=== PATIENT | female | born 1950 | race Caucasian/White ===

== ENCOUNTER 2016-07-07 09:07 | Emergency (ER) | payer MEDICARE, MEDICAID ==
[2016-07-07] MEDS ORDERED: SODIUM CHLORIDE 0.9% 500 ML IV ONE (09:52)
[2016-07-07] MEDS ORDERED: ACETAMINOPHEN 160 MG/5 ML UD 10.15ML CUP PO ONE (09:56)
[2016-07-07] MEDS ORDERED: DEXTROSE IVPB ONE (10:08)
[2016-07-07] MEDS ORDERED: CEFAZOLIN IVPB ONE (10:08)
[2016-07-07 10:27] LABS: HEMATOCRIT 39.1 % (35.0-47.0); HEMOGLOBIN 13.3 gm/dl (11.6-16.0); MEAN CELL VOLUME 93.5 fl (81-97); MEAN CORPUSCULAR HEMOGLOBIN 31.8 pg (27-33); MEAN PLATELET VOLUME 10.5 fl (7.4-10.4); PLATELET COUNT 235 K/uL (130-400); RED BLOOD COUNT 4.18 M/uL (3.80-5.40); RED CELL DISTRIBUTION WIDTH 13.2 % (11.5-14.5); WHITE BLOOD COUNT W/O DIFF 11.1 K/uL (4.2-12.2)
[2016-07-07 10:33] LABS: URINE APPEARANCE CLEAR; URINE BILIRUBIN NEGATIVE (NEGATIVE); URINE BLOOD SMALL (NEGATIVE); URINE COLOR YELLOW; URINE GLUCOSE (UA) NEGATIVE (NEGATIVE); URINE KETONE NEGATIVE (NEGATIVE); URINE LEUKOCYTE ESTERASE TRACE (NEGATIVE); URINE NITRITE POSITIVE (NEGATIVE); URINE PROTEIN NEGATIVE (NEGATIVE)
[2016-07-07 10:47] LABS: ALB/GLOB RATIO 1.2 (1.1-1.8); ALKALINE PHOSPHATASE 76 U/L (38-126); ALT/SGPT 25 U/L (9-52); AST/SGOT 28 U/L (14-36); BILIRUBIN,TOTAL 0.58 mg/dL (0.2-1.3); BLOOD UREA NITROGEN 12 mg/dL (7-17); CREATININE 0.5 mg/dL (0.52-1.04); EST GLOMERULAR FILTRATION RATE > 60 ml/min; GLUCOSE,RANDOM 109 mg/dL (70-110); TOTAL PROTEIN 7.3 gm/dL (6.3-8.2)
[2016-07-07 10:49] LABS: INFLUENZA A NEGATIVE (NEGATIVE); INFLUENZA B NEGATIVE (NEGATIVE)
[2016-07-07 11:00] LABS: URINE BACTERIA 3+; URINE EPITHELIAL CELLS 0 - 2 (FEW)
--- NOTE | 2016-07-07 13:14 | Emergency Department Record ---
History of Present Illness - General Chief complaint: Vomiting Stated complaint: vomiting Time Seen by Provider: 07/07/16 09:46 Source: Family, Marketing And Outreach Coordinator Mode of Arrival: Wheelchair Limitations: Altered mental status, Physical limitation - History of Present Illness Initial comments: pt brought in for fever and decreased appetite complaint: Other Onset/Timin -: Days(s) Improves with: None Worsens with: None Context: Sick contacts Associated Symptoms: Cough, Fever/chills, Nausea/vomiting - Related Data Home Medications Medication Instructions Recorded Confirmed Last Taken Aspirin Chewable 81 mg PO DAILY 08/07/13 07/07/16 07/07/16 Dextrin [Fiber] 350 gm PO DAILY 08/07/13 07/07/16 07/07/16 Ferrous Sulfate 325 mg PO DAILY 08/07/13 07/07/16 07/07/16 Hydralazine HCl 10 mg PO ASDIR 08/07/13 07/07/16 Unknown Lamotrigine 200 mg PO BID 08/07/13 07/07/16 07/07/16 Levetiracetam [Keppra] 500 mg PO DAILY 08/07/13 07/07/16 07/07/16 Pantoprazole Sodium 40 mg PO DAILY 08/07/13 07/07/16 07/07/16 Polyethylene Glycol 3350 [Miralax] 1 pkt PO DAILY 08/07/13 07/07/16 07/07/16 Alprazolam 0.5 mg PO ASDIR 07/07/16 07/07/16 Unknown Duloxetine HCl [Cymbalta] 60 mg PO DAILY 07/07/16 07/07/16 07/07/16 Olanzapine [Zyprexa] 5 mg PO QHS 07/07/16 07/07/16 07/07/16 Olanzapine [Zyprexa] 10 mg PO QHS 07/07/16 07/07/16 07/06/16 Sennosides/Docusate Sodium [Senna 1 tab PO TID 07/07/16 07/07/16 07/07/16 S Tablet] Previous Rx's Medication Instructions Recorded Cephalexin [Keflex] 500 mg PO BID #14 cap 07/07/16 Allergies Allergy/AdvReac Type Severity Reaction Status Date / Time Sulfa (Sulfonamide Allergy Intermediate HIVES Verified 07/07/16 09:28 Antibiotics) Travel Screening - Travel/Exposure Within Last 30 Days Have you traveled within the last 30 days?: No Review of Systems ROS unobtainable: Due to mental status Past Medical History - SOCIAL HISTORY Smoking Status: Never smoker Alcohol Use: None Drug Use: None - RESPIRATORY Hx Respiratory Disorders: No - CARDIOVASCULAR Hx Cardio Disorders: Yes Hx Hypertension: Yes - NEURO Hx Neuro Disorders: Yes Hx Seizures: Yes Comment:: mental disability - GI Hx GI Disorders: Yes Comment:: constipation - Hx Genitourinary Disorders: No - ENDOCRINE Hx Endocrine Disorders: No - MUSCULOSKELETAL Hx Musculoskeletal Disorders: No - PSYCH Hx Psych Problems: Yes Hx Anxiety: Yes Hx Behavior Problems: Yes - HEMATOLOGY/ONCOLOGY Hx Hematology/Oncology Disorders: No Family Medical History Any Significant Family History?: No Physical Exam - General General Appearance: Alert, Cooperative, Mild distress Limitations: Altered mental status, Physical limitation - Head Head exam: Normal inspection - Eye Eye exam: Normal appearance, PERRL, EOMI Pupils: Normal accommodation - ENT ENT exam: Normal exam, Mucous membranes moist, Normal external ear exam, Normal orophraynx, TM's normal bilaterally Ear exam: Normal external inspection. negative: External canal tenderness Nasal Exam: Normal inspection. negative: Discharge, Sinus tenderness Mouth exam: Normal external inspection, Tongue normal Teeth exam: Normal inspection. negative: Dental caries Throat exam: Normal inspection. negative: Tonsillar erythema, Tonsillar exudate - Neck Neck exam: Normal inspection, Full ROM. negative: Tenderness - Respiratory Respiratory exam: Normal lung sounds bilaterally. negative: Respiratory distress - Cardiovascular Cardiovascular Exam: Normal rhythm, Normal heart sounds, Tachycardia - GI/Abdominal GI/Abdominal exam: Soft, Normal bowel sounds. negative: Tenderness - Rectal Rectal exam: Deferred - exam: Deferred - Extremities Extremities exam: Normal inspection, Full ROM, Normal capillary refill. negative: Tenderness - Back Back exam: Reports: Normal inspection, Full ROM. Denies: Muscle spasm, Rash noted, Tenderness - Neurological Neurological exam: Alert, CN II-XII intact, Motor sensory deficit, Other ( wheelchair bound) - Psychiatric Psychiatric exam: Normal affect, Normal mood - Skin Skin exam: Dry, Intact, Normal color, Warm Course Vital Signs 07/07/16 09:19 Temperature 99.5 F Pulse Rate 132 H Respiratory 22 Rate Blood Pressure 129/61 Pulse Ox 92 L Medical Decision Making - Lab Data Result diagrams: 07/07/16 10:20 04/04/17 10:20 Lab Results 07/07/16 07/07/16 07/07/16 Range/Units 10:20 10:20 10:20 WBC 11.1 (4.2-12.2) K/uL RBC 4.18 (3.80-5.40) M/uL Hgb 13.3 (11.6-16.0) gm/dl Hct 39.1 (35.0-47.0) % MCV 93.5 (81-97) fl MCH 31.8 (27-33) pg MCHC 34.0 (32-36) g/dl RDW 13.2 (11.5-14.5) % Plt Count 235 (130-400) K/uL MPV 10.5 H (7.4-10.4) fl Neutrophils % 75.0 (47-80) % Band Neutrophils % 5.0 (0-5) % Lymphocytes % 6.0 L (16-45) % Monocytes % 14.0 H (0-9) % Eosinophils % Not Reportable Basophils % Not Reportable Sodium 139 (136-145) mmol/L Potassium 3.7 (3.5-5.1) mmol/L Chloride 103 (98-107) mmol/L Carbon Dioxide 26.0 (22-30) mmol/L Anion Gap 10.0 (7-16) BUN 12 (7-17) mg/dL Creatinine 0.5 L (0.52-1.04) mg/dL Estimated GFR > 60 ml/min Random Glucose 109 (70-110) mg/dL Calcium 8.8 (8.5-10.1) mg/dL Total Bilirubin 0.58 (0.2-1.3) mg/dL AST 28 (14-36) U/L ALT 25 (9-52) U/L Alkaline Phosphatase 76 (38-126) U/L Total Protein 7.3 (6.3-8.2) gm/dL Albumin 4.0 (3.5-5.0) gm/dL Globulin 3.3 (1.4-4.8) gm/dL Albumin/Globulin Ratio 1.2 (1.1-1.8) Urine Color Yellow Urine Appearance Clear Urine pH 7.5 (5.0-8.0) Ur Specific [place] 1.015 (1.002-1.030) Urine Protein Negative (NEGATIVE) Urine Glucose (UA) Negative (NEGATIVE) Urine Ketones Negative (NEGATIVE) Urine Blood Small H (NEGATIVE) Urine Nitrite Positive H (NEGATIVE) Urine Bilirubin Negative (NEGATIVE) Urine Urobilinogen 1.0 (0.20 - 1.00) E.U./dL Ur Leukocyte Esterase Trace H (NEGATIVE) Urine RBC 3 - 6 (NONE SEEN) Urine WBC 6 - 10 (0-2/hpf) Ur Epithelial Cells 0 - 2 (FEW) Urine Bacteria 3+ Influenza Type A Ag (NEGATIVE) Influenza Type B Ag (NEGATIVE) 07/07/16 Range/Units 10:20 WBC (4.2-12.2) K/uL RBC (3.80-5.40) M/uL Hgb (11.6-16.0) gm/dl Hct (35.0-47.0) % MCV (81-97) fl MCH (27-33) pg MCHC (32-36) g/dl RDW (11.5-14.5) % Plt Count (130-400) K/uL MPV (7.4-10.4) fl Neutrophils % (47-80) % Band Neutrophils % (0-5) % Lymphocytes % (16-45) % Monocytes % (0-9) % Eosinophils % Basophils % Sodium (136-145) mmol/L Potassium (3.5-5.1) mmol/L Chloride (98-107) mmol/L Carbon Dioxide (22-30) mmol/L Anion Gap (7-16) BUN (7-17) mg/dL Creatinine (0.52-1.04) mg/dL Estimated GFR ml/min Random Glucose (70-110) mg/dL Calcium (8.5-10.1) mg/dL Total Bilirubin (0.2-1.3) mg/dL AST (14-36) U/L ALT (9-52) U/L Alkaline Phosphatase (38-126) U/L Total Protein (6.3-8.2) gm/dL Albumin (3.5-5.0) gm/dL Globulin (1.4-4.8) gm/dL Albumin/Globulin Ratio (1.1-1.8) Urine Color Urine Appearance Urine pH (5.0-8.0) Ur Specific [place] (1.002-1.030) Urine Protein (NEGATIVE) Urine Glucose (UA) (NEGATIVE) Urine Ketones (NEGATIVE) Urine Blood (NEGATIVE) Urine Nitrite (NEGATIVE) Urine Bilirubin (NEGATIVE) Urine Urobilinogen (0.20 - 1.00) E.U./dL Ur Leukocyte Esterase (NEGATIVE) Urine RBC (NONE SEEN) Urine WBC (0-2/hpf) Ur Epithelial Cells (FEW) Urine Bacteria Influenza Type A Ag Negative (NEGATIVE) Influenza Type B Ag Negative (NEGATIVE) Disposition Disposition: Discharge Clinical Impression: UTI (urinary tract infection) Qualifiers: Urinary tract infection type: acute cystitis Hematuria presence: without hematuria Qualified Code(s): N30.00 - Acute cystitis without hematuria Disposition: Home, Self-Care Condition: (1) Good Instructions: Urinary Tract Infection in Women (ED) Additional Instructions: follow up with family doctor. return sooner if worse. push fluids Prescriptions: Cephalexin [Keflex] 500 mg PO BID #14 cap Forms: Patient Portal Access
== END 2016-07-07 13:29 | disposition home or self-care (01) ==
LOC: ER 09:07
DX: N30.00 Acute cystitis without hematuria (principal); R11.2 Nausea with vomiting, unspecified; R41.82 Altered mental status, unspecified; R05 Cough
CPT/HCPCS: 71010; 80053; 81001; 85027; 87400; 99284

== ENCOUNTER 2016-07-28 18:20 | Emergency (ER) | payer MEDICARE, MEDICAID ==
--- NOTE | 2016-07-28 18:47 | Emergency Department Record ---
History of Present Illness - General Chief complaint: Female Urogenital Problem Stated complaint: VAGINAL BLEEDING Time Seen by Provider: 07/28/16 18:38 Source: Patient (With home health care respiratory therapist) Mode of Arrival: Wheelchair Limitations: Altered mental status (non verbal chronic) - History of Present Illness Initial comments: 66 yo female presents with possible blood from the vagina. Staff at the home note blood in her depends garment today around 4pm. No other symptoms such as vomiting or diarrhea. She is chronically incontinent. No blood noted with stools. No fever. She is wheelchair bound and non verbal. MD Complaint: Vaginal bleeding Onset/Timin -: Hour(s) (2) Location: [place] Severity: Mild Consistency: Intermittent Improves with: None Worsens with: None Associated Symptoms: Vaginal discharge - Related Data Home Medications Medication Instructions Recorded Confirmed Last Taken Aspirin Chewable 81 mg PO DAILY 08/07/13 07/07/16 07/07/16 Dextrin [Fiber] 350 gm PO DAILY 08/07/13 07/07/16 07/07/16 Ferrous Sulfate 325 mg PO DAILY 08/07/13 07/07/16 07/07/16 Hydralazine HCl 10 mg PO ASDIR 08/07/13 07/07/16 Unknown Lamotrigine 200 mg PO BID 08/07/13 07/07/16 07/07/16 Levetiracetam [Keppra] 500 mg PO DAILY 08/07/13 07/07/16 07/07/16 Pantoprazole Sodium 40 mg PO DAILY 08/07/13 07/07/16 07/07/16 Polyethylene Glycol 3350 [Miralax] 1 pkt PO DAILY 08/07/13 07/07/16 07/07/16 Alprazolam 0.5 mg PO ASDIR 07/07/16 07/07/16 Unknown Duloxetine HCl [Cymbalta] 60 mg PO DAILY 07/07/16 07/07/16 07/07/16 Olanzapine [Zyprexa] 5 mg PO QHS 07/07/16 07/07/16 07/07/16 Olanzapine [Zyprexa] 10 mg PO QHS 07/07/16 07/07/16 07/06/16 Sennosides/Docusate Sodium [Senna 1 tab PO TID 07/07/16 07/07/16 07/07/16 S Tablet] Previous Rx's Medication Instructions Recorded Cephalexin [Keflex] 500 mg PO BID #14 cap 07/07/16 Clotrimazole [Antifungal] 1 apply TP .2 TO 3 TIMES DAILY #15 07/28/16 gm Allergies Allergy/AdvReac Type Severity Reaction Status Date / Time Sulfa (Sulfonamide Allergy Intermediate HIVES Verified 07/07/16 09:28 Antibiotics) Travel Screening - Travel/Exposure Within Last 30 Days Have you traveled within the last 30 days?: No Review of Systems ROS unobtainable: Due to mental status (chronic non verbal, at baseline) Past Medical History - SOCIAL HISTORY Smoking Status: Never smoker - RESPIRATORY Hx Respiratory Disorders: No - CARDIOVASCULAR Hx Cardio Disorders: Yes Hx Hypertension: Yes - NEURO Hx Neuro Disorders: Yes Hx Seizures: Yes Comment:: mental disability - GI Hx GI Disorders: Yes Comment:: constipation - Hx Genitourinary Disorders: No - ENDOCRINE Hx Endocrine Disorders: No - MUSCULOSKELETAL Hx Musculoskeletal Disorders: No - PSYCH Hx Psych Problems: Yes Hx Anxiety: Yes Hx Behavior Problems: Yes - HEMATOLOGY/ONCOLOGY Hx Hematology/Oncology Disorders: No Family Medical History Any Significant Family History?: No Physical Exam - General General Appearance: Alert, No acute distress Limitations: Altered mental status - Head Head exam: Atraumatic, Normal inspection - Eye Eye exam: Normal appearance - ENT ENT exam: Normal exam - Neck Neck exam: Normal inspection - Cardiovascular Cardiovascular Exam: Regular rate, Normal rhythm - GI/Abdominal GI/Abdominal exam: Soft - Rectal Rectal exam: Heme (-) stool, Normal inspection, Normal rectal tone. negative: Bloody stool, Hemorrhoids, Mass - exam: Abnormal external exam (mild labial erythema, 5mm bleeding scab on the patient's posterior left external labial area that appears to be the source of bleeding, ), Other (no blood in the vaginal opening, digital finger examination of the vagina was negative for blood, very minimal blood noted in the diaper on initial exam.) - Extremities Extremities exam: Normal inspection - Neurological Neurological exam: Alert - Psychiatric Psychiatric exam: Agitated - Skin Skin exam: Abrasion (left posterior vaginal area) Course Vital Signs 07/28/16 18:40 Temperature 97.0 F L Pulse Rate [ 108 H Pulse Ox Probe] Respiratory 22 Rate Blood Pressure 148/95 [Left Arm] Pulse Ox 95 - Reevaluation(s) Reevaluation #1: On examination she has a small scab that bleed on the left posterior external labial area, no vaginal or rectal blood She has a superficial mild external yeast infection. The plan will be treat with topical barrier cream to treat the yeast infection, as well as protect the small area of skin breakdown. 07/28/16 18:50 Disposition Disposition: Discharge Clinical Impression: Tinea cruris Vaginal abrasion Qualifiers: Encounter type: initial encounter Qualified Code(s): S30.814A - Abrasion of vagina and vulva, initial encounter Disposition: Home, Self-Care Condition: (1) Good Instructions: Tinea Corporis (ED) Additional Instructions: Clean the area with a mild soap once daily Apply the Clotrimazole twice daily or as needed after changing a soiled diaper Return if bleeding persists Prescriptions: Clotrimazole [Antifungal] 1 apply TP .2 TO 3 TIMES DAILY #15 gm Forms: Patient Portal Access Time of Disposition: 18:56
[2016-07-28] MEDS ORDERED: ZINC OXIDE 28.35 GM TUBE TOP ONE (18:53)
== END 2016-07-28 19:17 | disposition home or self-care (01) ==
LOC: ER 18:20
DX: S30.814A Abrasion of vagina and vulva, initial encounter (principal); B37.3 Candidiasis of vulva and vagina; X58.XXXA Exposure to other specified factors, initial encounter
CPT/HCPCS: 99283

== ENCOUNTER 2019-02-21 20:59 | Emergency (ER) | payer MEDICARE, MEDICAID ==
--- NOTE | 2019-02-21 21:24 | Emergency Department Record ---
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 Neuroscientist reports that the patient has a PEG tube placed by Dr. Guerrero, was accidentally pulled out by the patient just prior to arrival. Neuroscientist denies other complications following removal, denies bleeding or signs of infection to the abdominal wall. Onset/Timin -: Hour(s) Location: Abdomen Radiation: Non-Radiating Consistency: Constant Improves with: None Worsens with: None Associated Symptoms: Denies other symptoms Treatments Prior to Arrival: None - Colin Coma Scale Eye Response: (3) Open to voice Motor Response: (5) Localizes to pain Verbal Response: (3) Inappropriate words [place] Total: 11 - Related Data Previous Rx's Medication Instructions Recorded Cephalexin [Keflex] 500 mg PO BID #14 cap 07/07/16 Clotrimazole [Antifungal] 1 apply TP .2 TO 3 TIMES DAILY #15 07/28/16 gm Allergies Allergy/AdvReac Type Severity Reaction Status Date / Time Sulfa (Sulfonamide Allergy Intermediate HIVES Verified 07/07/16 09:28 Antibiotics) Review of Systems ROS unobtainable: Due to mental status Past Medical History - SOCIAL HISTORY Smoking Status: Never smoker - RESPIRATORY Hx Respiratory Disorders: No - CARDIOVASCULAR Hx Cardio Disorders: Yes Hx Hypertension: Yes - NEURO Hx Neuro Disorders: Yes Hx Seizures: Yes Comment:: mental disability - GI Hx GI Disorders: Yes Comment:: constipation - Hx Genitourinary Disorders: No - ENDOCRINE Hx Endocrine Disorders: No - MUSCULOSKELETAL Hx Musculoskeletal Disorders: No - PSYCH Hx Psych Problems: Yes Hx Anxiety: Yes Hx Behavior Problems: Yes - HEMATOLOGY/ONCOLOGY Hx Hematology/Oncology Disorders: No Physical Exam - General General Appearance: Alert, No acute distress Limitations: Physical limitation, Other (Previous CVA) - Head Head exam: Atraumatic, Normocephalic, Normal inspection Head exam detail: negative: Abrasion, Contusion, Brown's sign, General tenderness, Hematoma, Laceration - Eye Eye exam: Normal appearance. negative: Conjunctival injection, Periorbital swelling, Periorbital tenderness, Scleral icterus - ENT Ear exam: negative: Auricular hematoma, Auricular trauma Nasal Exam: negative: Active bleeding, Discharge, Dried blood, Foreign body Mouth exam: negative: Drooling, Laceration, Muffled voice, Tongue elevation - Neck Neck exam: Normal inspection. negative: Meningismus, Tenderness - Respiratory Respiratory exam: Normal lung sounds bilaterally. negative: Rales, Respiratory distress, Rhonchi, Stridor - Cardiovascular Cardiovascular Exam: Regular rate, Normal rhythm, Normal heart sounds - GI/Abdominal GI/Abdominal exam: Soft, Other (PEG tube removed prior to arrival). negative: Rebound, Rigid, Tenderness - Rectal Rectal exam: Deferred - exam: Deferred - Extremities Extremities exam: Normal inspection, Other (Moves all extremities spontaneously). negative: Tenderness - Neurological Neurological exam: Alert - Psychiatric Psychiatric exam: Normal affect, Normal mood - Skin Skin exam: Normal color. negative: Abrasion Type of lesion: negative: abrasion Course Vital Signs 02/21/19 21:10 Temperature 98.7 F Pulse Rate [ 102 H Right] Respiratory 18 Rate Blood Pressure 189/118 [Right Arm] - Reevaluation(s) Reevaluation #1: 02/21/19 21:28 Procedure Note: Abdominal insertion site was prepped in sterile fashion, 18 F catheter was inserted without difficulty with insuflation of the balloon (previous removed catheter had a 10 mL balloon distally) without complications. Food contents were aspirated from the catheter, and the catheter was secured back in place under a velcro binder following dressing application. Patient tolerated the procedure well without complications. Neuroscientist was instructed to call Dr. Guerrero tomorrow to have a proper PEG tubed replaced. Patient appears stable for discharge at this time. Disposition Disposition: Discharge Clinical Impression: Complication of feeding tube Disposition: Home, Self-Care Condition: (2) Stable Instructions: How to Use and Care for Your PEG Tube (ED) Additional Instructions: Return to ED if your symptoms worsen or if you have any concerns. Follow-up with Dr. Guerrero in 1-3 days as directed for re-evaluate of the patient's feeding tube placement. Forms: Patient Portal Access Time of Disposition: 21:23 Quality - Quality Measures Quality Measures: N/A - Blood Pressure Screening Does Patient Have Any of the Following: Active Dx of HTN Blood Pressure Classification: Hypertensive Reading Systolic Measurement: 189 Diastolic Measurement: 118 Screening for High Blood Pressure: Patient Exclusion, Hx of HTN [[id number]]
== END 2019-02-21 21:30 | disposition home or self-care (01) ==
LOC: ER 20:59
DX: T85.528A Displacement of other gastrointestinal prosthetic devices, implants and grafts, initial encounter (principal); I69.928 Other speech and language deficits following unspecified cerebrovascular disease
CPT/HCPCS: 43762; 99284